=== PATIENT | male | born 1955 | race Asian ===

== ENCOUNTER 2017-09-06 08:47 | Emergency (ER) | payer BC, OTHER ==
[2017-09-06] MEDS ORDERED: IBUPROFEN 600 MG TAB PO ONE (09:00)
[2017-09-06] MEDS ORDERED: ACETAMINOPHEN 500 MG TAB PO ONE (09:01)
[2017-09-06] MEDS ORDERED: NS 1,000 ML IV ONE (09:28)
--- NOTE | 2017-09-06 09:33 | EDPHY ---
H & P Stated Complaint: one day of fever aches and dry cough Time Seen by Provider: 09/06/17 09:02 HPI/ROS: Yesterday this patient developed fever and coughing with associated chills and fatigue. He reports that the cough is a dry hacking cough. He feels better after Tylenol only has relief for about a few hours from this. He notes no other exacerbating or alleviating factors. He has no other associated symptoms except for a feeling of some chest congestion and mild pain in the chest when he coughs but not with deep breaths. He drove himself here by private vehicle for evaluation. His recent travel history includes a trip to [place] for 10 days and he returned on August 28. ROS: Constitutional: As per HPI-fatigue fevers and chills HEENT: No nasal congestion. No sore throat. No ear pain. Neuro: Mild headaches with the fever that resolved with Tylenol. The headaches are similar to prior headaches are frontal in location. No confusion. No focal symptoms. Pulmonary: No pleuritic pain. No hemoptysis. No shortness of breath. Cardiovascular: No heart palpitations or lightheadedness. No chest pain at rest. Only with coughing. No peripheral edema. No orthopnea. GI: No nausea vomiting or abdominal pain : No complaints Integumentary: No skin rash Endocrine: No complaints Complete review of symptoms is otherwise negative Source: Patient Exam Limitations: No limitations - Personal History Current Tetanus Diphtheria and Acellular Pertussis (TDAP): Yes - Medical/Surgical History PMH: Otherwise healthy. He did have influenza vaccine this year. Hx Asthma: No Hx Chronic Respiratory Disease: No Hx Diabetes: No Hx Cardiac Disease: No Hx Renal Disease: No Hx Cirrhosis: No Hx Alcoholism: No Hx HIV/AIDS: No Hx Splenectomy or Spleen Trauma: No Other PMH: appy - Family History Significant Family History: No pertinent family hx - Social History Smoking Status: Never smoked Alcohol Use: Rarely Drug Use: None Additional Social History: Works in [employer]. - Physical Exam Exam: General Appearance: Alert, no distress. Eyes: Pupils equal and round no pallor or injection. ENT, Mouth: Mucous membranes moist. Respiratory: Rales at bases left more than right bilaterally. Otherwise clear to auscultation. Cardiovascular: Tachycardic with no murmur gallop rub. No JVD. No peripheral edema. No calf tenderness. Gastrointestinal: Abdomen is soft and nontender, no masses, bowel sounds normal. Neurological: GCS of 15 Skin: Warm and dry, no rashes. Musculoskeletal: Neck is supple nontender. Extremities are symmetrical, full range of motion. Psychiatric: Mood and affect are normal DIFFERENTIAL DIAGNOSIS: After history and physical exam differential diagnosis was considered for pneumonia, influenza, bronchitis, sepsis Constitutional: Initial Vital Signs Temperature (C) 39.3 C H 09/06/17 08:52 Heart Rate 114 H 09/06/17 08:52 Respiratory Rate 18 09/06/17 08:52 Blood Pressure 172/80 H 09/06/17 08:52 O2 Sat (%) 96 09/06/17 08:52 O2 Delivery Mode Room Air Allergies/Adverse Reactions: No Known Allergies Allergy (Verified 09/06/17 09:00) Home Medications: Medication Instructions Recorded Azithromycin [Zithromax] 250 mg PO DAILY #4 tab 09/06/17 Medical Decision Making - Diagnostics Imaging Results: Imaging Impressions Chest X-Ray 09/06/17 09:24 Impression: Mild perihilar bronchitis with a suspected early posterobasilar infiltrate. Findings were discussed with WU ROSALES MD at 9:47 AM, on 09/06/2017. Two view chest x-ray: Basilar infiltrate by my interpretation. Imaging: I viewed and interpreted images myself ED Course/Re-evaluation: Patient is treated with ibuprofen Tylenol for his fever upon arrival Rapid flu is performed upon arrival in is negative. IV is established patient is treated with normal saline bolus, After review of his chest x-ray, Rocephin 1 g IV and Zithromax 500 mg p.o.. The patient's vital signs normalized after treatment with resolution of his tachycardia and fever. Discussion: While the patient meet septic criteria with the pulse greater than 90 on arrival no fever greater than 38 centigrade, he does not have evidence of severe sepsis or other complicating factors is responded well to treatment. He has no dyspnea or hypoxia and is tolerating good p.o. intake. I think that he is safe for discharge home after treatment. Given his recent travel and is dry cough, atypical bacteria is possibility and Zithromax should cover this. I counseled the patient some detail regarding his diagnosis in the plan. He understands need to return emergency department should he develop any significant worsening of symptoms despite the treatment plan. - Data Points Laboratory Results: Laboratory Results 09/06/17 09:45 09/06/17 09:45 09/06/17 09/06/17 09/06/17 09:45 09:45 09:45 WBC 11.02 10^3/uL H 10^3/uL (3.80-9.50) RBC 4.37 10^6/uL L 10^6/uL (4.40-6.38) Hgb 13.2 g/dL L g/dL (13.7-17.5) Hct 37.8 % L % (40.0-51.0) MCV 86.5 fL fL (81.5-99.8) MCH 30.2 pg pg (27.9-34.1) MCHC 34.9 g/dL g/dL (32.4-36.7) RDW 12.2 % % (11.5-15.2) Plt Count 240 10^3/uL 10^3/uL (150-400) MPV 9.1 fL fL (8.7-11.7) Neut % (Auto) 84.9 % H % (39.3-74.2) Lymph % (Auto) 9.2 % L % (15.0-45.0) Piute % (Auto) 5.1 % % (4.5-13.0) Eos % (Auto) 0.1 % L % (0.6-7.6) Baso % (Auto) 0.3 % % (0.3-1.7) Nucleat RBC Rel Count 0.0 % % (0.0-0.2) Absolute Neuts (auto) 9.37 10^3/uL H 10^3/uL (1.70-6.50) Absolute Lymphs (auto) 1.01 10^3/uL 10^3/uL (1.00-3.00) Absolute Monos (auto) 0.56 10^3/uL 10^3/uL (0.30-0.80) Absolute Eos (auto) 0.01 10^3/uL L 10^3/uL (0.03-0.40) Absolute Basos (auto) 0.03 10^3/uL 10^3/uL (0.02-0.10) Absolute Nucleated RBC 0.00 10^3/uL 10^3/uL (0-0.01) Immature Gran % 0.4 % % (0.0-1.1) Immature Gran # 0.04 10^3/uL 10^3/uL (0.00-0.10) VBG Lactic Acid 1.0 mmol/L mmol/L (0.7-2.1) Sodium 136 mEq/L mEq/L (134-144) Potassium 3.7 mEq/L mEq/L (3.5-5.2) Chloride 99 mEq/L mEq/L (97-110) Carbon Dioxide 21 mEq/l L mEq/l (22-31) Anion Gap 16 mEq/L mEq/L (8-16) BUN 15 mg/dL mg/dL (7-23) Creatinine 0.8 mg/dL mg/dL (0.7-1.3) Estimated GFR > 60 Glucose 129 mg/dL H mg/dL (70-100) Calcium 8.8 mg/dL mg/dL (8.5-10.4) Influenza A,B Rapid 09/06/17 09:00 WBC RBC Hgb Hct MCV MCH MCHC RDW Plt Count MPV Neut % (Auto) Lymph % (Auto) Piute % (Auto) Eos % (Auto) Baso % (Auto) Nucleat RBC Rel Count Absolute Neuts (auto) Absolute Lymphs (auto) Absolute Monos (auto) Absolute Eos (auto) Absolute Basos (auto) Absolute Nucleated RBC Immature Gran % Immature Gran # VBG Lactic Acid Sodium Potassium Chloride Carbon Dioxide Anion Gap BUN Creatinine Estimated GFR Glucose Calcium Influenza A,B Rapid NEGATIVE FOR FLU (NEGATIVE) Medications Given: Discontinued Medications Acetaminophen (Tylenol) 1,000 mg PO EDNOW ONE Stop: 09/06/17 09:02 Last Admin: 09/06/17 09:08 Dose: 1,000 mg Azithromycin (Zithromax) 500 mg PO EDNOW ONE PRN Reason: Protocol Stop: 09/06/17 09:39 Last Admin: 09/06/17 10:05 Dose: 500 mg Sodium Chloride (Ns) 1,000 mls @ 0 mls/hr IV ONCE ONE; Wide Open PRN Reason: Protocol Stop: 09/06/17 09:29 Last Admin: 09/06/17 09:45 Dose: 1,000 mls Ceftriaxone Sodium 1 gm/ (Sodium Chloride) 100 mls @ 200 mls/hr IV EDNOW ONE PRN Reason: Protocol Stop: 09/06/17 10:17 Last Admin: 09/06/17 10:06 Dose: 100 mls Ibuprofen (Motrin) 600 mg PO EDNOW ONE Stop: 09/06/17 09:01 Last Admin: 09/06/17 09:08 Dose: 600 mg Departure - Departure Disposition: Home, Routine, Self-Care Clinical Impression: Community acquired pneumonia Qualifiers: Laterality: unspecified laterality Qualified Code(s): J18.9 - Pneumonia, unspecified organism Condition: Good Instructions: Community Acquired Pneumonia (ED) Additional Instructions: Diagnosis: Community-acquired pneumonia Plan: Humidifier for cough Drink plenty fluids Ibuprofen and/or Tylenol for fevers if needed Zithromax antibiotic-next dose tomorrow No work for the next 2 days. Follow up with Dr. Osei to establish primary care physician and have a recheck of her symptoms sometime the next 5-7 days Return to the emergency department if he develops any worsening of her symptoms despite the treatment plan Referrals: NONE *PRIMARY CARE P,. [Primary Care Provider] - As per Instructions Alejandra Osei MD [Medical Doctor] - As per Instructions Stand Alone Forms: Work Excuse Prescriptions: Azithromycin [Zithromax] 250 mg PO DAILY #4 tab
[2017-09-06] MEDS ORDERED: AZITHROMYCIN 250 MG TAB PO ONE (09:38)
[2017-09-06 09:52] LABS: % IMMATURE GRANULYOCYTES 0.4 % (0.0-1.1); ABSOLUTE IMMATURE GRANULOCYTES 0.04 10^3/uL (0.00-0.10); ADD DIFF? NO; ADD MORPH? NO; ADD SCAN? NO; ATYPICAL LYMPHOCYTE FLAG 20 (0-99); FRAGMENT RBC FLAG 0 (0-99); HEMATOCRIT 37.8 % (40.0-51.0); HEMOGLOBIN 13.2 g/dL (13.7-17.5); LEFT SHIFT FLG 0 (0-99); LIPEMIA HEMOLYSIS FLAG 90 (0-99); MEAN CELL HEMOGLOBIN 30.2 pg (27.9-34.1); MEAN CELL HEMOGLOBIN CONCENTR. 34.9 g/dL (32.4-36.7); MEAN CELL VOLUME 86.5 fL (81.5-99.8); MEAN PLATELET VOLUME 9.1 fL (8.7-11.7); PLATELET CLUMPS FLAG 0 (0-99); PLATELET COUNT 240 10^3/uL (150-400); RED BLOOD CELL COUNT 4.37 10^6/uL (4.40-6.38); RED CELL DISTRIBUTION WIDTH 12.2 % (11.5-15.2)
[2017-09-06 10:07] LABS: ANION GAP 16 mEq/L (8-16); CALCIUM 8.8 mg/dL (8.5-10.4); CARBON DIOXIDE 21 mEq/l (22-31); CHLORIDE 99 mEq/L (97-110); CREATININE 0.8 mg/dL (0.7-1.3); GLOMERULAR FILTRATION RATE > 60; GLUCOSE 129 mg/dL (70-100); POTASSIUM 3.7 mEq/L (3.5-5.2); SODIUM 136 mEq/L (134-144)
[2017-09-06 10:39] VITALS: BP 115/62; PULSE 96; RESP 16; TEMP 100.2; O2SAT 95
== END 2017-09-06 11:00 | disposition home or self-care (01) ==
LOC: CED 08:47
DX: J18.9 Pneumonia, unspecified organism (principal); E86.9 Volume depletion, unspecified
CPT/HCPCS: 71020-PO; 80048-PO; 83605-PO; 85025-PO; 87400-PO; 96365; J0696